=== PATIENT | male | born 1970 | race Asian ===

== ENCOUNTER 2023-03-29 14:45 | Emergency (ER) | payer OTHER ==
[~2023-03-29] VITALS: Ht 157.5 cm; Wt 70.8 kg
[2023-03-29 15:08] VITALS: BP 167/79; PULSE 83; RESP 18; TEMP 98.3; O2SAT 98
[2023-03-29 15:30] VITALS: BP_DIAS 79; PULSE 83; RESP 18; TEMP 98.3; O2SAT 98
[2023-03-29 16:33] LABS: BASOPHILS % (AUTO) 0.3 % (0.0-2.0); EOSINOPHILS # (AUTO) 0.2 K/uL (0-0.4); HEMATOCRIT 37.4 % (36-52); HEMOGLOBIN 12.6 g/dL (12.0-18.0); LYMPHOCYTES # (AUTO) 1.3 K/uL (2.0-11.5); LYMPHOCYTES % (AUTO) 15.3 % (20.5-51.1); MEAN CORPUSCULAR HEMOGLOBIN 29 pg (27-31); MEAN CORPUSCULAR HGB CONC 34 g/dL (33-37); MEAN CORPUSCULAR VOLUME 86.7 fL (80-94); MONOCYTES # (AUTO) 0.5 K/uL (0.8-1.0); MONOCYTES % (AUTO) 5.9 % (1.7-9.3); NEUTROPHILS # (AUTO) 6.3 K/uL (1.8-7.7); NEUTROPHILS % (AUTO) 75.5 % (42.2-75.2); PLATELET COUNT (AUTO) 286 K/uL (140-450); RED BLOOD CELL COUNT(AUTO) 4.32 MIL/uL (4.20-6.10); RED CELL DISTRIBUTION WIDTH 14.4 % (11.6-13.7); WHITE BLOOD COUNT (AUTO) 8.3 K/uL (4.8-10.8)
[2023-03-29 16:54] LABS: PARTIAL THROMBOPLASTIN TIME 27.6 secs (22-35.6); PROTHROMBIN TIME 10.5 secs (10.8-13.4)
[2023-03-29 16:59] LABS: ALANINE AMINOTRANSFERASE 16 U/L (12-78); ALBUMIN 3.8 g/dL (3.4-5.0); ALKALINE PHOSPHATASE 61 U/L (50-136); ANION GAP 11.1 (8-16); ASPARTATE AMINOTRANSFERASE 12 U/L (15-37); CALCIUM 9.1 mg/dL (8.5-10.1); CARBON DIOXIDE 28.5 mmol/L (21-32); CHLORIDE 102 mmol/L (98-107); CREATININE 1.3 mg/dL (0.6-1.3); GFR ARICAN-AMERICAN 74 mL/min (>90); GFR NON ARICAN-AMERICAN 61 mL/min (>90); GLUCOSE 111 mg/dL (74-106); POTASSIUM 3.6 mmol/L (3.5-5.1); SODIUM SERUM 138 mmol/L (136-145); TOTAL BILIRUBIN 0.3 mg/dL (0.0-1.0); TOTAL PROTEIN, SERUM 7.3 g/dL (6.4-8.2); UREA NITROGEN, BLOOD 15 mg/dL (7-18)
[2023-03-29 18:30] LABS: FLU A ANTIGEN negative (NEGATIVE); FLU B ANTIGEN NEGATIVE (NEGATIVE)
[2023-03-29 19:12] VITALS: BP_SYST 148
[2023-03-29] MEDS ORDERED: NIRM1TAB PO (19:18)
== END 2023-03-29 20:02 | disposition home or self-care (01) ==
LOC: MED 14:45
DX: U07.1 COVID-19 (principal); R53.83 Other fatigue; I10 Essential (primary) hypertension; E11.9 Type 2 diabetes mellitus without complications; E78.5 Hyperlipidemia, unspecified; Z79.899 Other long term (current) drug therapy
CPT/HCPCS: 36415; 71045; 80053; 82948; 84484; 85025; 85610; 85730; 87426; 87804; 93005; 99285; Q0092

== ENCOUNTER 2023-11-17 17:36 | Emergency (ER) | payer OTHER ==
[~2023-11-17] VITALS: Ht 172.7 cm; Wt 72.6 kg
[~2023-11-17 17:36] MED LIST: NIRM1TAB PO
[2023-11-17 17:49] VITALS: BP 153/77; PULSE 86; RESP 18; TEMP 97.7; O2SAT 98
[2023-11-17] MEDS ORDERED: ACET325C8 PO (20:09)
[2023-11-17] MEDS ORDERED: PROM118S5 PO (20:09)
[2023-11-17 20:28] VITALS: BP 153/77; PULSE 86; RESP 18; TEMP 97.7; O2SAT 98
[2023-11-17 20:29] LABS: FLU A ANTIGEN negative (NEGATIVE); FLU B ANTIGEN negative (NEGATIVE)
== END 2023-11-17 20:31 | disposition home or self-care (01) ==
LOC: MED 17:36
DX: J06.9 Acute upper respiratory infection, unspecified (principal); Z20.822 Contact with and (suspected) exposure to COVID-19; I10 Essential (primary) hypertension; E11.9 Type 2 diabetes mellitus without complications; Z79.4 Long term (current) use of insulin; Z79.899 Other long term (current) drug therapy
CPT/HCPCS: 71045; 99284